=== PATIENT | female | born 1970 | race Caucasian/White ===

== ENCOUNTER 2017-03-17 17:35 | Emergency (ER) | payer OTHER ==
[~2017-03-17] VITALS: Ht 154.9 cm; Wt 70.4 kg
[2017-03-17] MEDS ORDERED: INDOCIN50 MG PO (18:55)
[2017-03-17 20:19] VITALS: BP 108/75
== END 2017-03-17 20:24 | disposition home or self-care (01) ==
LOC: EME 17:35
DX: M79.674 Pain in right toe(s) (principal); M32.9 Systemic lupus erythematosus, unspecified; M79.89 Other specified soft tissue disorders; Z87.891 Personal history of nicotine dependence
CPT/HCPCS: 73630